=== PATIENT | female | born 1955 | race Hispanic/Latino ===

== ENCOUNTER 2017-04-28 05:51 | Observation (INO) | payer OTHER ==
--- NOTE | 2017-04-26 13:55 | XRay Report ---
PA and lateral chest: Breast cancer. Routine views demonstrate clear lungs and normal mediastinal contour. No bone lesions. An [id number] is present entering the left jugular vein with its tip in the low SVC. No comparison exam. Impression: No pathology identified.
[2017-04-28] MEDS ORDERED: PEPCID PO NR (07:00)
[2017-04-28] MEDS ORDERED: ZOFRAN ONE (07:00)
[2017-04-28] MEDS ORDERED: XYLOCAINE MPF 2% ONE (07:00)
[2017-04-28] MEDS ORDERED: DECADRON ONE (07:00)
[2017-04-28] MEDS ORDERED: SUBLIMAZE ONE (07:00)
[2017-04-28] MEDS ORDERED: ANCEF/STERILE WATER 2 GM/20 ML IV NR (07:00)
[2017-04-28] MEDS ORDERED: VERSED IV NR (07:00)
[2017-04-28] MEDS ORDERED: DIPRIVAN 10 MG/ML IV ONE (07:00)
[2017-04-28] MEDS ORDERED: NACL 0.9% 1000 ML 1,000 ML IV SCH (07:00)
--- NOTE | 2017-04-28 07:22 | Anesthesia Consultation ---
Anesthesia Consult and Med Hx Date of service: 04/28/17 - Airway Anesthetic Teeth Evaluation: Caps ROM Head & Neck: Adequate Mental/Hyoid Distance: Adequate Mallampati Class: Class II Intubation Access Assessment: Good - Pulmonary Exam CTA: Yes - Cardiac Exam Cardiac Exam: No Murmur - Pre-Operative Health Status ASA Pre-Surgery Classification: ASA2 Proposed Anesthetic Plan: General Nerve Block: PEC Block - Pulmonary Hx Smoking: No Hx Sleep Apnea: No - Cardiovascular System Hx Heart Murmur: Yes Hx Peripheral Vascular Disease: Yes - Central Nervous System Hx Neuromuscular Disorder: Yes (arthritis) Hx Back Pain: Yes (L1-2 compression fx) Hx Psychiatric Problems: No - Gastrointestinal Hx Gastroesophageal Reflux Disease: No - Other Systems Hx Cancer: Yes (RIGHT BREAST, DX: 08/2016, LAST CHEMO 03-29-17, DR. ERICKSON- ONCOLOGIST)
[2017-04-28] MEDS ORDERED: MARCAINE-EPI/PF 0.5%-1:200,000 INFILTRATI ONE ×2 (07:26→07:27)
[2017-04-28] MEDS ORDERED: ANCEF ONE ×2 (07:40→12:20)
[2017-04-28] MEDS ORDERED: GARAMYCIN ONE ×2 (07:41→07:44)
[2017-04-28] MEDS ORDERED: XYLOCAINE 1% 20 mL ONE (07:43)
[2017-04-28] MEDS ORDERED: NACL 0.9% 100 ML ONE (07:44)
[2017-04-28] MEDS ORDERED: METHYLENE BLUE ONE (07:44)
[2017-04-28] MEDS ORDERED: MARCAINE 0.25% INFILTRATI ONE (07:44)
[2017-04-28] MEDS ORDERED: SUBLIMAZE IV NR (08:00)
[2017-04-28] MEDS ORDERED: DECADRON IV NR (08:00)
[2017-04-28] MEDS ORDERED: NEURONTIN PO NR (08:00)
[2017-04-28] MEDS ORDERED: TRANSDERM-SCOP TD ONE (08:05)
[2017-04-28] MEDS ORDERED: DILAUDID ONE (09:03)
[2017-04-28] MEDS ORDERED: NACL 0.9% 1000 ML 1,000 ML ONE ×2 (10:05→11:27)
[2017-04-28] MEDS ORDERED: NACL 0.9% IR ONE (10:16)
[2017-04-28] MEDS ORDERED: BETADINE TP ONE (10:17)
[2017-04-28] MEDS ORDERED: ANCEF IV ONE (10:17)
[2017-04-28] MEDS ORDERED: NACL 0.9% IV ONE (10:20)
[2017-04-28] MEDS ORDERED: ePHEDrine SULFATE ONE (10:56)
--- NOTE | 2017-04-28 11:34 | Operative Report ---
Operative Report Operative Report: Date of procedure:April 28, 2017 Pre-operative diagnosis: Right breast cancer of the upper outer quadrant Post-operative diagnosis: Same Procedure name(s): Right total mastectomy with SLNB and left total mastectomy Surgeon: Linda Randall MD It Security Engineer: Ms. Carranza Anesthesia: General Findings: Right total mastectomy with SLNB with 2 nodes identified and frozen section negative malignancy; radiograph specimen of right total mastectomy with 3 clips present Complications: None EBL: Minimal Disposition: Remained in the operating room for bilateral tissue dictating machine typist placement by Dr. Oneal Indications for operative procedure: This is a 62-year-old lady with stage I right breast cancer of the upper outer quadrant diagnosed in August 2016. Patient recently completed neoadjuvant chemotherapy of AC/T under Dr. Garcia. In 1999 she had a left excisional biopsy with findings ALH/LCIS. She took tamoxifen for 5 years. Patient wished to proceed with bilateral total mastectomies. She was consented for the above procedure. Procedure in detail: Anesthesia placed bilateral pectoral muscle blocks prior to proceeding to the operating room. The patient was taken to the operating room and was laid supine. Gen. anesthesia was administered without any complications. Bilateral breast and axillas were prepped and draped in the normal sterile operative fashion. The nipple areaolar complex was injected with radioisotope. Timeout was performed. Typical mastectomy markings were made. First began with a left total mastectomy. A skin incision was made with a 10 blade knife with dissection taken down to the subcutaneous tissues. First began with raising of the superior flap to the level of the clavicle and posteriorly to the pectoralis muscle, followed by raising of the medial flap to the level of the sternum taken down posteriorlyo the pectoralis muscle, followed by raising of the inferior flap to the level of inframammary fold taken down posteriorly to the pectoralis muscle and then followed by the raising of the lateral flap to the level latissimus dorsi taken down posteriorly. The mastectomy was then removed from the pectoralis muscle. Hemostasis was noted. Chest wall cavity was irrigated and suctioned and temporaryly packed. Attention was then taken towards the right breast. Gamma probe inserted into the axilla with identification of the sentinel lymph node. First began with raising of the superior flap to the level of the clavicle taken down posterior to the pectoralis muscle followed by raising of the medial flap to the level of the sternum taken down posterior to the pectoralis muscle, followed by raising of the lateral flap to the level of the latissimus dorsi muscle. The gamma probe was inserted into the axilla with the area of sentinel nodes identified. 2 sentinel lymph nodes were identified and were sent to pathology for frozen section with negative findings for malignancy. Then proceeded with raising of the inferior flap to the level of the inframammary fold taken down posteriorly to the pectoralis muscle. The breast was removed from the pectoralis muscle without incident. Hemostasis was obtained with the aid of Bovie cautery. Chest wall cavity was appropriately irrigated and suctioned. Dr. Oneal then proceeded with placement of bilateral tissue expanders.
[2017-04-28] MEDS ORDERED: ZOFRAN IV PRN (13:34)
[2017-04-28] MEDS ORDERED: NARCAN 0.4 MG/1 ML IV PRN (13:34)
[2017-04-28] MEDS ORDERED: REGLAN IV PRN (13:34)
--- NOTE | 2017-04-28 13:58 | Operative Report ---
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 45.71 Post-operative diagnosis: Same Procedure name(s): Bilateral immediate breast reconstruction with tissue expanders an Cortiva Allograft dermis 8 cm x 16 cm, CPT code 45207 & 22322-53 Surgeon: Wing Oneal M.D. Geophysical Operator: None Anesthesia: General anesthesia EBL: Minimal Specimen: None Findings: Natrelle 133 [id number] tissue scrum project manager Biocell Moderate Height Extra projection 700 mL filled to 300 mL bilateral. Cortiva Allograft dermis 8 cm x 16 cm Procedure: After Prakash finish the mastectomies and reconstruction began. Starting on the left breast mound the free border of the pectoralis major muscle was identified. A subpectoral pocket was entered. The origin muscle was detached with electrocautery. An Cortiva Allograft dermis 8 cm x 16 cm, thick graft was obtained and it was hydrated and rinsed twice. It was sutured starting at the 9:00 position with 0 PDS suture and the shiny side was deep opposite to the tissue scrum project manager. The lateral end of the graft was sutured to the apex of the insertion of pectoralis major muscle with 0 PDS sutures. The medial PDS suture was ran from medial to lateral suturing the inferior border of the Cortiva Allograft dermis to the inframammary fold. Two Bright-Silva catheters were placed, one was deep to the Cortiva Allograft dermis and the other was superficial to the Cortiva Allograft dermis placed in the inferior pocket. Natrelle 133 [id number] tissue scrum project manager Biocell Moderate Height Extra projection 700 mL was obtained. All the air was removed. It was placed underneath the Cortiva Allograft dermis and pectoralis major muscle and oriented appropriately. The inferior tabs were sutured with 3-0 monocryl sutures. The superior border of the Cortiva Allograft dermis was sutured to the free border and detached border of pectoralis major muscle using a running 0 PDS suture from lateral to medial. The integral port was identified and a 21- gauge butterfly needle was inserted. It was filled to 300 ml of normal saline using aseptic transfer system. The butterfly was removed. The excess skin was imbricated, marked and trimmed. There was good bleeding along the skin margins on the superior and inferior flaps. skin was closed with 3-0 Monocryl buried interrupted sutures and 3-0 Monocryl subcuticular stitch. The drains were sutured with 2-0 silk suture. A biopatch was place around each drain along with a Opsite dressing. Surgical glue was applied. The repeat procedure was repeated on the right contralateral side in a similar fashion using the same size Cortiva Allograft dermis 8 cm x 16 cm and the same size tissue scrum project manager with the same fill volume. Dermabond was applied. Sterile dressing was applied. Tube top was applied. Patient tolerated procedure well. She was awakened and taken to recover in satisfactory condition.
[2017-04-28] MEDS ORDERED: DILAUDID PCA 6MG/30ML IV SCH (14:00)
--- NOTE | 2017-04-28 15:12 | Post Anesthesia Evaluation ---
- Post Anesthesia Evaluation Patient Participated: Yes Airway Patent: Yes Stable Respiratory Function: Yes Nausea/Vomiting: No Temp > 96.8F: Yes Pain Manageable: Yes Adequeate Hydration: Yes Anesthesia Complications: No Block Receding Appropriately: Not Applicable Patient on Ventilator: No
--- NOTE | 2017-04-28 15:33 | Mammography Report ---
Surgical specimen mammogram: One large single piece of tissue is submitted that contains 2 biopsy markers and a well-circumscribed nodule. The remainder of the tissue appears generally fatty and unremarkable.
[2017-04-28] MEDS: D5/0.45NS 1,000 ML IV SCH (18:19)
[2017-04-28] MEDS ORDERED: REQUIP PO SCH (22:00)
[2017-04-28] MEDS: ANCEF/NS 1 GM/50 ML 1 GM/50 ML BAG IV SCH (23:00)
[2017-04-29] MEDS: D5/0.45NS 1,000 ML IV SCH (04:21)
--- NOTE | 2017-04-29 07:10 | Admit Criteria Form ---
Admission Criteria Documentation: AMBULATORY SURGERY EXCEPTION CRITERIA Ambulatory Surgery Exception Criteria ( Place 'X' for any and all applicable criteria): Surgery or procedure performed on ambulatory basis may require inpatient stay for[A] ANY ONE of the following(1)(2)(3)(4)(5)(6)(7)(8)(9): [X] I. A preoperative situation, condition, or finding that warrants inpatient stay as indicated by ANY ONE of the following: [X] a) Inpatient care needed because of severity of a disease or condition rather than the surgery (eg, severe cardiac or respiratory disease, severe infection) (15) (16 ) (17) (18) [] b) Emergent procedure (eg, angioplasty for acute ischemia)(19) [] c) Complex surgical approach or situation as indicated by ANY ONE of the following(3): [] i) Open approach needed instead of usual endoscopic, transcatheter, or other less invasive procedure [] ii) Difficult approach because of previous operation [] iii) Airway monitoring required after open neck procedures(20)(21) [] iv) Large mass requiring unusually extensive dissection [] v) Additional complicating feature requiring inpatient care (eg, drain management)(22(23): [] d) Major surgery in a pt with high anesthetic risk as indicated by ANY ONE of the following (2)(3)(5)(7)(8): [] i) ASA risk class III or higher (severe systemic disease impairing function) [D] [] ii) Advanced age (eg, older than 85 years)(14)(24) [] iii) Symptomatic heart failure(25) [] iv) Symptomatic asthma or COPD(8)(21) [] v) Morbid obesity with hemodynamic or respiratory problems(20)( 21)(26)(27) [] vi) Obstructive sleep apnea(20)(21) [] vii) Former premature infants who are younger than 60 weeks [] viii) High risk for severe postoperative abnormalities (eg, severe postoperative hypocalcemia after parathyroidectomy for severe hyperparathyroidism)(27)( 28) [] ix) Unstable angina(25) [] e) Drug-related risk requiring inpatient stay as indicated by ANY ONE of the following(5)(10)(14)(32)(33) [] i) Procedure requires discontinuing drugs or other therapy (eg , antiarrhythmic medication, antiseizure medication), which necessitates inpatient observation or treatment.(18)(31) [] ii) Major surgery and high risk drug use as indicated by ANY ONE of the following: [] 1) Active abuse of cocaine or similar drug [] 2) Monoamine oxidase inhibitor use [] 3) Other drug identified as posing risk [] f) Inadequate outpatient care situation as indicated by ANY ONE of the following(5)(10)(14)(32)(33) [] i) Patient lives remote from medical facility and procedure has urgent complication potential, and temporary nearby residence cannot be arranged [] ii) Patient will have postprocedure incapacitation and inadequate assistance at home, or alternative level of care cannot be arranged. [] iii) Patient will have long general anesthesia or procedure side effect resolution time, and competent person to stay with patient on first postoperative night at home or alternative level of care cannot be arranged. []iv) Other inadequate outpatient situation that cannot be handled by other means [] II. A perioperative event, condition, or finding that warrants inpatient stay as indicated by ANY ONE of the following (1)(2)(3): [] a) Inadequate physiologic recovery: cardiovascular, respiratory, or hemodynamic status not normal or near preoperative baseline(18) [] b) Hemodynamic instability [] c) Patient not alert with near normal or baseline mental status [] d) Temperature not normal or as expected and not appropriate for outpatient treatment of condition [] e) Ambulatory or appropriate activity level status not yet achieved post procedure [E](34)(35)(36) [] f) Operative site not appropriate (eg, unexpected or excessive drainage or bleeding) [] g) Postoperative effects not resolved or adequately managed (eg, significant pain or vomiting not appropriate for outpatient or next level of care)(10)(12) [] h) Complicating features requiring inpatient care as indicated by ANY ONE of the following(37): [] i) Severe complications of procedure (eg, bowel injury, airway compromise, vascular injury,severe hemorrhage) [] ii) Extensive (eg, dissection far beyond usual scope of procedure ) or prolonged (eg, 120 minutes beyond usual) surgery needed requiring inpatient postoperative care [] iii) Conversion to an open or complex procedure that requires inpatient care (eg, open vs laparoscopic cholecystectomy, abdominal vs vaginal hysterectomy)(38) [] iv) Comorbid condition or test result identified during or post procedure that requires inpatient care (7) [] v) Malignant hyperthermia(30) [] vi) Other complicating feature requiring inpatient care(22)(23) Inpatient stay may be needed until ALL of the following are present (1)(2)(3)(4) (5)(6)(10)(14)(33)(40): []a) Physiologic recovery: cardiovascular, respiratory, and hemodynamic status normal or near preoperative baseline []b) Hemodynamic stability []c) Patient alert, with near normal or baseline mental status []d) Temperature appropriate: patient afebrile or temperature appropriate for outpt treatment of condition []e) Activity level appropriate: ambulatory or appropriate activity level post procedure []f) Operative site appropriate as indicated by ALL of the following: []i) Site dry or with expected drainage []ii) Any blood noted is as expected for procedure. []g) Postoperative effects resolved or managed as indicated by ALL of the following: []i) Pain management appropriate for outpatient (or next level of) care(10) []ii) Minimal nausea and vomiting: if present, successfully treated with oral medication(12) []iii) Headache, dizziness, or drowsiness (if present) are mild. []h) Voiding status acceptable as indicated by ANY ONE of the following: []i) Voiding spontaneously []ii) No voiding but instructions given for follow-up in 6 to 8 hours []iii) Urinary catheter in place, and instructions given for follow-up []i) Complicating features requiring inpatient care manageable at a lower level of care(37) []j) Comorbid conditions manageable at a lower level of care(37) The original [employer] content created by [employer] has been revised. The portions of the content which have been revised are identified through the use of italic text or in bold, and [employer] has neither reviewed nor approved the modified material. All other unmodified content is copyright [employer]. Please see references footnoted in the original [employer] edition 2016 Admission Criteria Met: Yes
[2017-04-29] MEDS ORDERED: NEO SYNEPHRINE/NS Syringe(OR USE) IV ONE (07:30)
[2017-04-29] MEDS: ANCEF/NS 1 GM/50 ML 1 GM/50 ML BAG IV SCH ×2 (07:45→09:16)
[2017-04-29] MEDS ORDERED: LOVENOX SUB-Q SCH (10:00)
[2017-04-29 13:22] VITALS: BP 136/55
== END 2017-04-29 15:00 | disposition home or self-care (01) ==
LOC: OR 05:51 → OB 13:34 → INTOOBSV 04-29 14:09 → OBSVTOIN 04-29 14:09
PROVIDERS: ADMIT Surgery; ATTEND Surgery
DX: C50.411 Malignant neoplasm of upper-outer quadrant of right female breast (principal); I10 Essential (primary) hypertension; I73.9 Peripheral vascular disease, unspecified; M19.90 Unspecified osteoarthritis, unspecified site; K21.9 Gastro-esophageal reflux disease without esophagitis; Z90.12 Acquired absence of left breast and nipple; Z85.3 Personal history of malignant neoplasm of breast; Z90.49 Acquired absence of other specified parts of digestive tract; Z80.3 Family history of malignant neoplasm of breast; Z79.899 Other long term (current) drug therapy; Z90.710 Acquired absence of both cervix and uterus; Z88.5 Allergy status to narcotic agent
CPT/HCPCS: 19303; 19357; 64450; 71020; 76098; 78800; 88307; 88309; 88331; 88333; 88341; 88342; 93005; 93010; 96365; 96372; 96375; A9541; C1789; G0378; J0690; J1100; J1170; J1580; J1650; J2250; J2370; J2405; J2704; J2765; J3010; J7030; Q4116; Q9968